=== PATIENT | male | born 1950 | race African-American/Black ===

== ENCOUNTER 2017-01-03 14:23 | Emergency (ER) | payer MEDICARE, MEDICAID ==
[~2017-01-03] VITALS: Ht 177.8 cm; Wt 90.0 kg
[2017-01-03] MEDS ORDERED: SODIUM CHLORIDE 0.9% 1,000 ML IV ONE (14:51)
[2017-01-03] MEDS ORDERED: ACETAMINOPHEN 325MG TABLET PO ONE (15:00)
[2017-01-03 15:19] LABS: BASOPHILS % 0.6 % (0.0-2.0); EOSINOPHILS % 2.4 % (0.0-5.0); HEMOGLOBIN. 11.3 g/dL (14.0-18.0); LYMPHOCYTES % 14.1 % (20.0-50.0); MEAN CORPUSCULAR HEMOGLOBIN 27.5 pg (28.0-32.0); MEAN CORPUSCULAR VOLUME 83.1 fL (80.0-94.0); MEAN PLATELET VOLUME 7.5 fl (7.4-10.4); MONOCYTES % 8.9 % (2.0-8.0); PLATELET 199 x1000/uL (130-400)
[2017-01-03 15:27] LABS: INR 1.6; PROTHROMBIN TIME 16.9 sec
[2017-01-03 15:30] LABS: CARBON DIOXIDE 25 mEq/L (21-32); CHLORIDE 104 mEq/L (98-107)
[2017-01-03 15:37] LABS: TROPONIN I < 0.02 ng/mL (0.00-0.04)
[2017-01-03] MEDS ORDERED: INSULIN REGULAR (HUMULIN R) UD 100 UNITS/ML SYR SUBCUT ONE (15:45)
[2017-01-03 16:04] VITALS: BP 153/100
[2017-01-03] MEDS ORDERED: INSULIN REGULAR (HUMULIN R) 300UNITS/3ML SUBCUT NR (16:15)
== END 2017-01-03 16:52 | disposition home or self-care (01) ==
LOC: ER 15:12
DX: E86.0 Dehydration (principal); E11.65 Type 2 diabetes mellitus with hyperglycemia; D64.9 Anemia, unspecified; I48.91 Unspecified atrial fibrillation; Z79.01 Long term (current) use of anticoagulants
CPT/HCPCS: 36415; 70450; 71010; 80053; 84484; 85025; 85610; 93005; 96360; 96361; 99285; J1815; J7030